=== PATIENT | female | born 1965 | race Caucasian/White ===

== ENCOUNTER 2025-02-27 03:48 | Emergency (ER) | payer SELFPAY ==
[~2025-02-27] VITALS: Ht 167.6 cm; Wt 65.0 kg
[2025-02-27 04:10] VITALS: O2SAT 99
[2025-02-27 05:04] LABS: BASOPHILS % 0.2 % (0.0-2.0); EOSINOPHILS % 0.9 % (0.0-5.0); HEMATOCRIT. 32.0 % (36.0-48.0); HEMOGLOBIN. 10.5 g/dL (12.0-16.0); LYMPHOCYTES % 12.4 % (20.0-50.0); MEAN PLATELET VOLUME 6.6 fl (7.4-10.4); MONOCYTES % 7.6 % (2.0-8.0); NEUTROPHILS % 78.9 % (40.0-76.0); PLATELET 444 x1000/uL (130-400); RED BLOOD CELL COUNT 3.53 mill/uL (4.2-5.4); RED CELL DISTRIBUTION WIDTH 14.2 % (11.6-14.6)
[2025-02-27] MEDS: LITHIUM CARBONATE 150 MG CAPSULE PO SCH (05:06)
[2025-02-27 05:10] LABS: *AMPHETAMINES SCREEN URINE NEGATIVE (NEGATIVE); *BARBITURATES SCREEN URINE NEGATIVE (NEGATIVE); *BENZODIAZEPINES SCREEN URINE NEGATIVE (NEGATIVE); *COCAINE SCREEN URINE NEGATIVE (NEGATIVE); CANNABINOID URINE SCREEN PRESUMPTIVE POSITIVE (NEGATIVE); ECSTASY MDMA SCREEN URINE NEGATIVE (NEGATIVE); METHADONE URINE SCREEN NEGATIVE (NEGATIVE); OPIATES URINE SCREEN NEGATIVE (NEGATIVE); PHENCYCLIDINE URINE SCREEN NEGATIVE (NEGATIVE)
[2025-02-27 05:16] LABS: CREATININE 0.4 mg/dL (0.6-1.0); UREA NITROGEN BLOOD 8 mg/dL (9-23)
[2025-02-27 05:17] LABS: ETHANOL BLOOD < 10 mg/dL (<10)
[2025-02-27 16:31] VITALS: BP 96/58; PULSE 74; RESP 18; TEMP 37; O2SAT 100
== END 2025-02-27 16:35 ==
LOC: ER 04:02
DX: R46.2 Strange and inexplicable behavior (principal); Z79.899 Other long term (current) drug therapy; Z20.822 Contact with and (suspected) exposure to COVID-19
CPT/HCPCS: 36415; 80048; 80305; 80307; 80320; 80329; 85025; 87426; 93005; 99285; G0480